=== PATIENT | female | born 1980 | race Caucasian/White ===

== ENCOUNTER 2017-02-02 10:59 | Emergency (ER) | payer BC ==
--- NOTE | 2017-02-02 11:32 | Emergency Department Record ---
History of Present Illness - General Stated complaint: BLEEDING/CRAMPING/ 5 WEEKS Time Seen by Provider: 02/02/17 11:26 Source: Patient, Family Mode of Arrival: Ambulatory Limitations: No limitations - History of Present Illness Initial comments: 37 yo female presents with her first . She states her last normal cycle was last month. She is about 7 days late. She is having cramping and spotting. She denies any prior . No fever. She has had some mild nausea. No fever. No blood in the stools. MD Complaint: Abdominal pain, Vaginal bleeding -: Hour(s) Radiation: None Severity: Moderate Quality: Aching Consistency: Constant Improves with: None Worsens with: None Associated symptoms: Vaginal bleeding Vaginal bleeding: Light Other (First ) - Related Data Home Medications Medication Instructions Recorded Confirmed Last Taken No Home Med [NO HOME MEDS] 02/02/17 02/02/17 Unknown Allergies Allergy/AdvReac Type Severity Reaction Status Date / Time amoxicillin Allergy DIFFICULTY Verified 02/02/17 11:35 BREATHING Review of Systems Constitutional: Denies: Chills, Fever, Malaise, Weakness Eyes: Denies: Eye discharge, Eye pain, Photophobia ENT: Denies: Congestion, Throat pain Respiratory: Denies: Cough, Dyspnea, Hemoptysis, Stridor, Wheezes Cardiovascular: Denies: Chest pain, Palpitations, Syncope Endocrine: Denies: Fatigue Gastrointestinal: Reports: As per HPI, Abdominal pain, Nausea. Denies: Diarrhea , Vomiting Genitourinary: Reports: As per HPI, Abnormal menses Musculoskeletal: Denies: Arthralgia, Back pain, Joint swelling, Myalgia Skin: Denies: Bruising, Change in color, Rash Neurological: Denies: Headache, Numbness, Weakness Psychiatric: Denies: Anxiety Hematological/Lymphatic: Denies: Blood Clots, Easy bleeding, Easy bruising, Swollen glands Physical Exam - General General Appearance: Alert, Oriented x3, Cooperative, No acute distress Limitations: No limitations - Head Head exam: Normal inspection - Eye Eye exam: Normal appearance. negative: Conjunctival injection, Periorbital swelling - ENT ENT exam: Normal exam, Mucous membranes moist Ear exam: Normal external inspection Nasal Exam: Normal inspection Mouth exam: Normal external inspection - Neck Neck exam: Normal inspection - Respiratory Respiratory exam: Normal lung sounds bilaterally. negative: Respiratory distress - Cardiovascular Cardiovascular Exam: Regular rate, Normal rhythm, Normal heart sounds Peripheral Pulses: 2+: Radial (R), Radial (L) - GI/Abdominal GI/Abdominal exam: Soft, Tenderness (mild in the suprpubic area) - Rectal Rectal exam: Deferred - Extremities Extremities exam: Normal inspection, Full ROM, Normal capillary refill. negative: Tenderness - Back Back exam: Reports: Normal inspection, Full ROM. Denies: Muscle spasm, Rash noted, Tenderness - Neurological Neurological exam: Alert, Normal gait, Oriented X3 - Psychiatric Psychiatric exam: Normal affect, Normal mood. negative: Agitated, Anxious - Skin Skin exam: Dry, Intact, Normal color, Warm Course - Reevaluation(s) Reevaluation #1: The CBC is unchanged Mild increase in LFT HCG is 11 Wet prep is negative 02/02/17 13:25 She is RH+ UA with indications for infection. 02/02/17 13:26 The Us was negative for any acute process She will be instructed to return in 48-72 hours for a repeat HCG 02/02/17 13:56 Reevaluation #2: I discussed the mild increase in LFT's She reports she has had this prior She does no drink or take tylenol She may have that recheck in 48-72 hours as well. 02/02/17 14:17 Medical Decision Making - Lab Data Result diagrams: 02/02/17 12:00 02/02/17 12:00 Disposition Disposition: Discharge Clinical Impression: Threatened Disposition: Home, Self-Care Condition: (1) Good Instructions: Threatened Miscarriage (ED) Additional Instructions: Return or be seen in 48-78 hours for a repeat HCG level. Return or be seen sooner if pain, heavy bleeding or any new concerns. Forms: Patient Portal Access Time of Disposition: 13:57 Quality - Quality Measures Quality Measures: N/A - Blood Pressure Screening Does Patient Have Any of the Following: No Blood Pressure Classification: Hypertensive Reading Systolic Measurement: 202 Diastolic Measurement: 118 Screening for High Blood Pressure: < Pre-Hypertensive BP, F/U Documented > [ G8950] Pre-Hypertensive Follow-up Interventions: Referral to alternative/primary care provider.
[2017-02-02 12:19] LABS: URINE APPEARANCE CLOUDY; URINE BILIRUBIN SMALL (NEGATIVE); URINE BLOOD LARGE (NEGATIVE); URINE COLOR BROWN; URINE GLUCOSE (UA) NEGATIVE (NEGATIVE); URINE KETONE 15 mg/dL (NEGATIVE); URINE LEUKOCYTE ESTERASE TRACE (NEGATIVE); URINE NITRITE NEGATIVE (NEGATIVE); URINE UROBILINOGEN 0.2 E.U./dL (0.20 - 1.00)
[2017-02-02 12:24] LABS: BASO % 0.2 % (0-6); EOS % 2.2 % (0-6); GRAN % 69.9 % (47-80); HEMATOCRIT 41.6 % (35.0-47.0); HEMOGLOBIN 13.9 gm/dl (11.6-16.0); LYMPH % 22.9 % (16-45); MEAN CELL VOLUME 83.5 fl (81-97); MEAN CORPUSCULAR HEMOGLOBIN 27.9 pg (27-33); MEAN CORPUSCULAR HGB CONC 33.4 g/dl (32-36); MEAN PLATELET VOLUME 10.2 fl (7.4-10.4); MONO % 4.8 % (0-9); PLATELET COUNT 476 K/uL (130-400); RED BLOOD COUNT 4.98 M/uL (3.80-5.40); RED CELL DISTRIBUTION WIDTH 14.1 % (11.5-14.5); WHITE BLOOD COUNT W/O DIFF 12.2 K/uL (4.2-12.2)
[2017-02-02 12:30] LABS: URINE BACTERIA FEW; URINE EPITHELIAL CELLS 0 - 2 (FEW)
[2017-02-02 12:38] LABS: TOTAL B-hCG 11.49 mIU/mL
[2017-02-02 12:50] LABS: ALB/GLOB RATIO 1.3 (1.1-1.8); ALBUMIN 4.4 g/dL (4.0-5.0); ALKALINE PHOSPHATASE 112 U/L (35-104); ALT/SGPT 106 U/L (<33); AST/SGOT 58 U/L (10.0-35.0); BLOOD UREA NITROGEN 17.1 mg/dL (12.6-42.6); CREATININE 0.6 mg/dL (0.5-0.9); EST GLOMERULAR FILTRATION RATE > 60 mL/min; GLUCOSE,RANDOM 127 mg/dL (74-109); TOTAL PROTEIN 7.8 g/dL (6.6-8.7)
--- NOTE | 2017-02-03 06:50 | ULTRASOUND REPORT ---
DATE: 02/02/2017 at 1229. EXAM: FIRST TRIMESTER WITH TRANSVAGINAL BLEEDING. HISTORY: Positive home test last week. Bleeding and cramping today. TECHNIQUE: Transabdominal ultrasound examination of the pelvis is performed. Transvaginal scanning is also performed for further evaluation of the uterus and adnexa. COMPARISON: None. FINDINGS: Transabdominal Findings: The uterus is normal in position and smoothly marginated. It measures 7.0 cm in length x 2.9 cm AP x 3.9 cm transverse. No myometrial mass is demonstrated. The endometrium is not optimally visualized. No intra- nor extrauterine gestational sac is identified. The left ovary is visualized and is normal in size measuring 3.8 x 2.2 x 2.5 cm. The right ovary is not visualized transabdominally. Transvaginal Findings: The uterus is normal in size and configuration. No myometrial mass. The endometrium measures 6.0 mm in thickness which is within the limits of normal. Each ovary is visualized and is normal in size. The left ovary measures 2.3 x 3.1 x 1.7 cm, and the right ovary measures 3.4 x 3.9 x 2.3 cm. Small follicles are demonstrated in each ovary. The largest follicle in the right ovary measures 1.2 cm in diameter, and the largest follicle on the left measures 1.1 cm in maximum diameter. Blood flow is demonstrated in each ovary with color Doppler and duplex Doppler evaluation. Spectral analysis demonstrates venous and arterial waveforms in each ovary. Trace fluid in the cul de sac is questioned. This is nonspecific. No adnexal mass is seen. IMPRESSION: 1. NORMAL SONOGRAPHIC APPEARANCE OF THE UTERUS. NO INTRA- OR EXTRAUTERINE GESTATIONAL SAC IDENTIFIED. IN THE PRESENCE OF AN ELEVATED BETA HCG LEVEL, DIAGNOSTIC CONSIDERATIONS INCLUDE EARLY INTRAUTERINE , SPONTANEOUS , AND LESS LIKELY ECTOPIC . 2. NO EVIDENCE OF OVARIAN TORSION. TRACE FREE FLUID IN THE CUL DE SAC QUESTIONED, NONSPECIFIC. JOB NUMBER: [id number] [facility]
== END 2017-02-02 14:16 | disposition home or self-care (01) ==
LOC: ER 10:59
DX: O20.0 Threatened abortion (principal); Z3A.01 Less than 8 weeks gestation of pregnancy; R11.0 Nausea
CPT/HCPCS: 99283; 99284; 85025; 84702; 80053; 81001; 86901; 76817; 76801; Q0111; 87210

== ENCOUNTER 2017-02-05 14:45 | Emergency (ER) | payer BC ==
--- NOTE | 2017-02-05 15:07 | Emergency Department Record ---
History of Present Illness - General Chief Complaint: Recheck - Other Stated Complaint: PT WAS INSTRUCTED BY DR. GOODMAN TO RETURN Time Seen by Provider: 02/05/17 14:59 Source: Patient Mode of arrival: Ambulatory Limitations: No limitations - History of Present Illness Initial Comments: The patient is here for a recheck of lab work. She was in the ED 3 days ago and had an HCG level of 11. She did have a neg US performed and was told to have the lab rechecked in 2-3 days. Since her menses has stopped and she now denies any pain or discomfort. MD Complaint: Abnormal lab Onset/Timin -: Days(s) Initial Visit For: Other Symptoms Since Prior Visit: No new symptoms Associated Symptoms: None - Related Data Allergies Allergy/AdvReac Type Severity Reaction Status Date / Time amoxicillin Allergy DIFFICULTY Verified 02/05/17 14:51 BREATHING Travel Screening - Travel/Exposure Within Last 30 Days Have you traveled within the last 30 days?: No - Travel/Exposure Within Last Year Have you traveled outside the [place] in the last year?: No - Additonal Travel Details Have you been exposed to anyone with a communicable illness?: No - Travel Symptoms Symptom Screening: None Review of Systems Constitutional: Denies: Chills, Fever Eyes: Denies: Eye discharge ENT: Denies: Congestion Respiratory: Denies: Cough Past Medical History - SOCIAL HISTORY Smoking Status: Former smoker Alcohol Use: Rare Drug Use: None - RESPIRATORY Hx Respiratory Disorders: No - CARDIOVASCULAR Hx Cardio Disorders: No - NEURO Hx Neuro Disorders: No - GI Hx GI Disorders: No - Hx Genitourinary Disorders: No - ENDOCRINE Hx Endocrine Disorders: No - MUSCULOSKELETAL Hx Musculoskeletal Disorders: No - PSYCH Hx Psych Problems: No - HEMATOLOGY/ONCOLOGY Hx Hematology/Oncology Disorders: No Family Medical History Any Significant Family History?: No Physical Exam - General General Appearance: Alert, Oriented x3, Cooperative, No acute distress - Head Head exam: Atraumatic - Eye Eye exam: Normal appearance, PERRL - Neck Neck exam: Normal inspection, Full ROM. negative: Tenderness - Respiratory Respiratory exam: Normal lung sounds bilaterally. negative: Respiratory distress - Cardiovascular Cardiovascular Exam: Regular rate, Normal rhythm, Normal heart sounds - GI/Abdominal GI/Abdominal exam: Soft, Normal bowel sounds. negative: Rebound, Rigid, Tenderness Course Vital Signs 02/05/17 14:51 Temperature 98.8 F Pulse Rate 105 H Respiratory 20 Rate Blood Pressure 134/98 Pulse Ox 97 - Reevaluation(s) Reevaluation #1: The patient is doing well. I did inform her of the lab results and she is to F/ U with her PCP this week. 02/05/17 16:02 Medical Decision Making - Lab Data Result diagrams: 02/05/17 15:25 02/05/17 15:25 Disposition Disposition: Discharge Clinical Impression: Miscarriage Disposition: Home, Self-Care Condition: (1) Good Instructions: Miscarriage (ED) Additional Instructions: Please see your PCP this week for recheck and to also discuss your elevated LFT' s. Return to the ER for any problems in the future. Forms: Patient Portal Access Time of Disposition: 16:03 Quality - Quality Measures Quality Measures: N/A - Blood Pressure Screening View Details: Yes Does Patient Have Any of the Following: No Blood Pressure Classification: Pre-Hypertensive BP Reading Systolic Measurement: 133 Diastolic Measurement: 79 Screening for High Blood Pressure: < Pre-Hypertensive BP, F/U Documented > [ G8950] Pre-Hypertensive Follow-up Interventions: Referral to alternative/primary care provider.
[2017-02-05 15:31] LABS: BASO % 0.2 % (0-6); EOS % 3.6 % (0-6); GRAN % 63.2 % (47-80); HEMOGLOBIN 13.6 gm/dl (11.6-16.0); LYMPH % 27.4 % (16-45); MEAN CELL VOLUME 82.5 fl (81-97); MEAN PLATELET VOLUME 10.2 fl (7.4-10.4); MONO % 5.6 % (0-9); PLATELET COUNT 409 K/uL (130-400); RED BLOOD COUNT 4.85 M/uL (3.80-5.40); RED CELL DISTRIBUTION WIDTH 13.8 % (11.5-14.5); WHITE BLOOD COUNT W/O DIFF 10.2 K/uL (4.2-12.2)
[2017-02-05 15:58] LABS: ALB/GLOB RATIO 1.2 (1.1-1.8); ALKALINE PHOSPHATASE 119 U/L (35-104); ALT/SGPT 93 U/L (<33); AST/SGOT 45 U/L (10.0-35.0); BLOOD UREA NITROGEN 29.3 mg/dL (12.6-42.6); CREATININE 0.6 mg/dL (0.5-0.9); EST GLOMERULAR FILTRATION RATE > 60 mL/min; GLUCOSE,RANDOM 144 mg/dL (74-109); TOTAL PROTEIN 7.3 g/dL (6.6-8.7)
[2017-02-05 15:59] LABS: TOTAL B-hCG < 0.500 mIU/mL
== END 2017-02-05 16:10 | disposition home or self-care (01) ==
LOC: ER 14:45
DX: O03.9 Complete or unspecified spontaneous abortion without complication (principal)
CPT/HCPCS: 80053; 84702; 85025; 99283